=== PATIENT | male | born 1990 | race Caucasian/White ===

== ENCOUNTER → 2017-03-20 | Outpatient (CLI) | payer OTHER ==
[~2017-03-20] MED LIST: BNTHP PO; DICY10CA12 PO; FLUV100T12 PO; ONDA4TAB10 SL
[2017-03-20 16:46] LABS: BASO % 0.3 %; BASO ABS # 0.04 K/uL (0-0.2); COMPLETE YES; EOS % 1.9 %; HEMATOCRIT 46.5 % (42-52); IG% 0.2 %; LYMPH % 38.5 %; LYMPH ABS # 4.78 K/uL (1.2-3.4); MEAN CELL VOLUME 84.4 fL (80-100); MEAN CORPUSCULAR HEMOGLOBIN 29.4 pg (25-34); MEAN CORPUSCULAR HGB CONC 34.8 g/dl (32-36); MEAN PLATELET VOLUME 10.2 fL (7.4-10.4); MONO % 7.6 %; NEUT % 51.5 %; PLATELET COUNT 349 K/uL (130-400); RED BLOOD COUNT 5.51 M/uL (4.7-6.1); WHITE BLOOD COUNT 12.41 K/uL (4.8-10.8)
[2017-03-20 16:54] LABS: ALT/SGPT 107 U/L (12-78); BLOOD UREA NITROGEN 15 mg/dl (7-18); BUN/CREATININE RATIO 15.4 (10-20); CALCIUM 9.4 mg/dl (8.5-10.1); CARBON DIOXIDE 28 mmol/L (21-32); CHLORIDE 104 mmol/L (98-107); CHOLESTEROL 162 mg/dl (0-200); GLUCOSE 98 mg/dl (70-99); POTASSIUM 3.6 mmol/L (3.5-5.1); SODIUM 138 mmol/L (136-145)
[2017-03-20 16:57] LABS: ALKALINE PHOSPHATASE 93 U/L (45-117); AST/SGOT 35 U/L (15-37); HDL CHOLESTEROL 27 mg/dl; LDL CHOLESTEROL CALCULATED 84 mg/dl; TRIGLYCERIDES 256 mg/dl (0-150); VERY LOW DENSITY LIPOPROT CALC 51 mg/dl
== END | disposition home or self-care (01) ==
LOC: C.LABBFT 14:46
PROVIDERS: ATTEND Physician Assistant Medical
DX: Z00.00 Encounter for general adult medical examination without abnormal findings (principal)

== ENCOUNTER 2017-03-22 13:52 | Emergency (ER) | payer OTHER ==
[~2017-03-22] VITALS: Ht 175.3 cm; Wt 107.0 kg
[~2017-03-22 13:52] MED LIST changes: -BNTHP PO; -FLUV100T12 PO; -ONDA4TAB10 SL
[2017-03-22 14:05] VITALS: TEMP 37.6; Ht 175.3 cm; Wt 107.0 kg
[2017-03-22] MEDS ORDERED: FLUV100T12 PO (14:53)
[2017-03-22] MEDS ORDERED: BNTHP PO (14:53)
--- NOTE | 2017-03-22 15:16 | EMERGENCY ROOM VISIT NOTE ---
History Report prepared by [place]: Sonja Chisholm Under the Supervision of: Dr. Dayday Antoine M.D. First contact with patient: 14:47 Chief Complaint: ABDOMINAL PAIN Stated Complaint: V,D, ABD/BACK PAIN, SINCE 03/19/17 Nursing Triage Summary: n/v/d since today having diffuse abd pain with lower back pain History of Present Illness The patient is a 27 year old white male with a past medical history of IBS, depression, and PTSD who presents to the ED with a cc of sharp abdominal pain beginning 3 days ago. The patient states that he saw his doctor after having white diarrhea and was told to come into the ED if his symptoms persisted. He reports that he has had nausea, vomiting, pain below his ribs, and back pain since his visit. He notes that his diarrhea has a yellow phlegm in it. Negative urinary symptoms, chest pain, groin pain, recent travel, well water, trauma. Pt states that is IBS has never been this bad before and his medication usually relieves his symptoms. He reports that he has a family history of colon cancer, colitis, and diverticulitis. He states that his daughter was sick for 1 day but her symptoms are resolved. Pt is not on any blood thinners. Source of History: patient Onset: 3 days ago Position: abdomen Quality: sharp Timing: constant Associated Symptoms: + nausea, + vomiting, + back pain, + diarrhea, No chest pain, No urinary symptoms Note: He notes that his diarrhea has a yellow phlegm in it. Negative groin pain, recent travel, well water, trauma. Review of Systems See HPI for pertinent positives and negatives. A total of ten systems were reviewed and were otherwise negative. Past Medical & Surgical Medical Problems: (1) IBS (irritable bowel syndrome) (2) Rectal hemorrhage Family History No pertinent family history stated. Social History Smoking Status: Never Smoker Marital Status: single Occupation Status: employed Current/Historical Medications Scheduled Dicyclomine HCl (Dicyclomine HCl), 1 CAP PO TID Fluvoxamine Maleate (Luvox), 150 MG PO HS Ondasetron Odt (Zofran Odt), 4 MG SL Q6H Allergies Coded Allergies: No Known Allergies (Unverified , 03/22/17) Physical Exam Vital Signs Date Time Temp Pulse Resp B/P (MAP) Pulse Ox O2 Delivery O2 Flow Rate FiO2 03/22/17 17:04 81 18 122/76 96 Room Air 03/22/17 16:11 83 03/22/17 15:35 88 20 144/94 99 Room Air 03/22/17 14:05 37.6 110 20 138/75 99 Room Air Physical Exam GENERAL: Awake, alert, well-appearing, NAD HENT: Normocephalic, atraumatic. EYES: Normal conjunctiva. Sclera non-icteric. NECK: Supple. No nuchal rigidity. FROM. RESPIRATORY: CTAB, no rhonchi, wheezing, crackles CARDIAC: RRR, no MRG ABDOMEN: Soft, BS+, diffuse abdominal pain but a non-surgical abdomen, non peritonitic. MSK: No chest wall TTP, no LE edema, no CVA TTP, negative obturators, negative psoas NEURO: GCS 15, CN 2-12 intact, moves all 4s on command SKIN: No rash or jaundice noted. Medical Decision & Procedures ER Provider Diagnostic Interpretation: Radiology results as stated below per my review and radiologist interpretation: CHEST ONE VIEW PORTABLE FINDINGS: Lung volumes are normal. No pneumothorax or pleural effusion is present. Pulmonary vascularity is normal. Cardiomediastinal silhouette is normal. No consolidation is identified to suggest pneumonia. IMPRESSION: No acute cardiopulmonary findings. Electronically signed by: Jose J Davila M.D. 03/22/2017 3:56 PM Dictated Date/Time: 03/22/2017 3:[address] OF THE ABDOMEN AND PELVIS WITH CONTRAST FINDINGS: There is probable fatty infiltration of the liver. The adrenal glands and pancreas as well as the spleen are normal. Subcentimeter bilateral renal lesions are too small to characterize. There is no hydronephrosis or hydroureter. The caliber and wall thickness of small and large bowel are normal. The appendix is normal. No peripancreatic or pericholecystic infiltration is present. There is no ascites. There is no lymphadenopathy. Bilateral L5 pars defects are noted without anterolisthesis. IMPRESSION: 1. No acute process within the abdomen or pelvis. Normal appendix. 2. No bowel obstruction. 3. Probable fatty infiltration of the liver. Electronically signed by: Jose J Davila M.D. 03/22/2017 5:16 PM Dictated Date/Time: 03/22/2017 5:11 PM Laboratory Results 03/22/17 14:35 Red Blood Count 5.72, Mean Corpuscular Volume 83.7, Mean Corpuscular Hemoglobin 30.2, Mean Corpuscular Hemoglobin Concent 36.1, Mean Platelet Volume 10.1, Neutrophils (%) (Auto) 51.6, Lymphocytes (%) (Auto) 37.3, Monocytes (%) (Auto) 8.9, Eosinophils (%) (Auto) 1.7, Basophils (%) (Auto) 0.3, Neutrophils # (Auto) 5.91, Lymphocytes # (Auto) 4.27, Monocytes # (Auto) 1.02, Eosinophils # (Auto) 0.20, Basophils # (Auto) 0.03 03/22/17 14:35 Test 03/22/17 14:35 03/22/17 15:25 White Blood Count 11.45 K/uL (4.8-10.8) Red Blood Count 5.72 M/uL (4.7-6.1) Hemoglobin 17.3 g/dL (14.0-18.0) Hematocrit 47.9 % (42-52) Mean Corpuscular Volume 83.7 fL (80-100) Mean Corpuscular Hemoglobin 30.2 pg (25-34) Mean Corpuscular Hemoglobin Concent 36.1 g/dl (32-36) Platelet Count 360 K/uL (130-400) Mean Platelet Volume 10.1 fL (7.4-10.4) Neutrophils (%) (Auto) 51.6 % Lymphocytes (%) (Auto) 37.3 % Monocytes (%) (Auto) 8.9 % Eosinophils (%) (Auto) 1.7 % Basophils (%) (Auto) 0.3 % Neutrophils # (Auto) 5.91 K/uL (1.4-6.5) Lymphocytes # (Auto) 4.27 K/uL (1.2-3.4) Monocytes # (Auto) 1.02 K/uL (0.11-0.59) Eosinophils # (Auto) 0.20 K/uL (0-0.5) Basophils # (Auto) 0.03 K/uL (0-0.2) RDW Standard Deviation 38.8 fL (36.4-46.3) RDW Coefficient of Variation 12.9 % (11.5-14.5) Immature Granulocyte % (Auto) 0.2 % Immature Granulocyte # (Auto) 0.02 K/uL (0.00-0.02) Anion Gap 9.0 mmol/L (3-11) Est Creatinine Clear Calc Drug Dose 142.6 ml/min Estimated GFR () 129.0 Estimated GFR (Non- 111.3 BUN/Creatinine Ratio 12.8 (10-20) Calcium Level 9.1 mg/dl (8.5-10.1) Phosphorus Level 3.6 mg/dl (2.5-4.9) Magnesium Level 2.1 mg/dl (1.8-2.4) Total Bilirubin 0.6 mg/dl (0.2-1) Direct Bilirubin 0.1 mg/dl (0-0.2) Aspartate Amino Transf (AST/SGOT) 29 U/L (15-37) Alanine Aminotransferase (ALT/SGPT) 87 U/L (12-78) Alkaline Phosphatase 99 U/L (45-117) Total Protein 8.6 gm/dl (6.4-8.2) Albumin 4.4 gm/dl (3.4-5.0) Lipase 94 U/L (73-393) Urine Color DK YELLOW Urine Appearance CLEAR (CLEAR) Urine pH 5.0 (4.5-7.5) Urine Specific [place] 1.028 (1.000-1.030) Urine Protein TRACE (NEG) Urine Glucose (UA) NEG (NEG) Urine Ketones NEG (NEG) Urine Occult Blood NEG (NEG) Urine Nitrite NEG (NEG) Urine Bilirubin NEG (NEG) Urine Urobilinogen NEG (NEG) Urine Leukocyte Esterase NEG (NEG) Urine WBC (Auto) 1-5 /hpf (0-5) Urine RBC (Auto) 0-4 /hpf (0-4) Urine Hyaline Casts (Auto) 10-30 /lpf (0-5) Urine Epithelial Cells (Auto) 20-30 /lpf (0-5) Urine Bacteria (Auto) NEG (NEG) Laboratory results reviewed by me Medications Administered Medications (Trade) Dose Ordered Sig/Kishore Route Start Time Stop Time Status Last Admin Dose Admin Sodium Chloride 1,000 ml @ 999 mls/hr Q1H1M STAT IV 03/22/17 15:20 03/22/17 16:20 DC 03/22/17 15:31 999 MLS/HR Ondansetron HCl (Zofran Inj) 4 mg NOW STAT IV 10/15/17 15:20 03/22/17 15:21 DC 03/22/17 15:32 4 MG ED Course 1447: The patient was evaluated in room C1. A complete history and physical exam was performed. 1520: Morphine Sulfate 4mg IV, Zofran Inj 4mg IV, Sodium Chloride 1000 ml @ 999 mls/hr IV. 1732: I reevaluated and updated the patient. 1743: I reevaluated the patient. Discussed results and discharge instructions: He verbalized understanding and agreement. The patient is ready for discharge. Medical Decision The patient is a 27 year old white male with a past medical history of IBS, depression, and PTSD who presents to the ED with a cc of sharp abdominal pain beginning 3 days ago. Differential diagnosis: Etiologies such as appendicitis, diverticulitis, PUD, biliary pathology, UTI, pancreatitis, obstruction, mesenteric ischemia, aortic pathology, infections, inflammatory bowel disease, renal colic, as well as others were entertained. Patient was seen and evaluated at the bedside. Patient is a history of IBS. Patient's family history of possible colitis and sure if it's inflammatory bowel disease such as ulcerative colitis or Crohn's. Patient has been complaining of some nausea vomiting as well as diarrhea. Patient denies any recent trauma. Patient generally takes dicyclomine but currently without relief. Patient did have blood work, UA, supportive care along with a CT of the abdomen pelvis completed. Patient's UA without infection. CT the abdomen pelvis did not show any bowel obstruction or inflammatory changes of the bowel. Patient's LFTs and lipase within normal limits with exception of AST that was trace the elevated.. Patient did have mild hypokalemia told to supplement home. Patient white count of 11,000. Patient was told of his the findings. Patient was told to follow up with his primary care and call tomorrow and thus get a referral for gastroenterology as the patient does have a family history of colon cancer and does have a history of IBS. Patient tolerated by mouth. Patient was told to slowly advance his diet as tolerated. Patient was given strict follow-up, discharge, and return precautions. Patient agreed with plan of care and patient was safely discharged home. Medication Reconcilliation Current Medication List: was personally reviewed by me Blood Pressure Screening Patient's blood pressure: Elevated blood pressure Blood pressure disposition: Elevated BP felt to be situational Impression Primary Impression: Viral gastroenteritis Additional Impressions: Nausea & vomiting Diarrhea Hypokalemia Scribe Attestation The scribe's documentation has been prepared under my direction and personally reviewed by me in its entirety. I confirm that the note above accurately reflects all work, treatment, procedures, and medical decision making performed by me. Departure Information Dispostion Home / Self-Care Prescriptions Ondasetron Odt (ZOFRAN ODT) 4 Mg Tab 4 MG SL Q6H for Nausea, #10 TAB Prov: Dayday Antoine M.D. 03/22/17 Referrals No Doctor, Assigned (PCP) Veronica Colbert, DO Patient Instructions ED Gastroenteritis Viral, My [facility] Additional Instructions Please return to the emergency department if you have worsening or recurrent symptoms not amenable to at-home treatment. Please call for a follow-up appointment with her primary care physician. Please take your medications as prescribed. If you have other concerns and/or complaints please feel free to also call your primary care physician's office or return the ED for further evaluation, management, and treatment. You were found to have an elevated blood pressure today (>120 sytolic or >90 diastolic). Per medicare guidelines, you need to follow up with this blood pressure screening with your Primary Care Physician (PCP). For a new PCP call [phone]. You received narcotic or benzodiazepene medication while in the emergency room today. This is an addictive medication that may cause drowziness as well as constipation. Do not drive, operate heavy machinery, or drink alcohol under the influence of this medication. You may take tylenol 1000mg every 6 hours as needed for pain. Continue to try you dicyclomine. You may also try loperamide to help w/ diarrhea but only take 1 time each day for next two days. Call PCP for a follow up appointment and help arrange follow up with a a operator. You have been examined and treated today on an emergency basis only. This is not a substitute for, or an effort to provide, complete comprehensive medical care. It is impossible to recognize and treat all injuries or illnesses in a single emergency department visit. It is therefore important that you follow up closely with [facility]. Call as soon as possible for an appointment. Thank you for your time and consideration. I look forward to speaking with you again soon. Please don't hesitate to call us if you have any questions. Problem Qualifiers Additional Impressions: Nausea & vomiting Vomiting type: unspecified Vomiting Intractability: non-intractable Qualified Codes: R11.2 - Nausea with vomiting, unspecified Diarrhea Diarrhea type: unspecified type Qualified Codes: R19.7 - Diarrhea, unspecified
[2017-03-22] MEDS ORDERED: ONDANSETRON INJ 2 MG/ML 2 ML VIAL IV STA (15:20)
[2017-03-22] MEDS ORDERED: SODIUM CHLORIDE 0.9% 1000ML 1,000 ML IV STA (15:20)
[2017-03-22] MEDS ORDERED: MoRPHine SULFATE 4 MG/ML 1 ML CARP\\VIAL IV STA (15:20)
[2017-03-22 15:30] LABS: BASO % 0.3 %; BASO ABS # 0.03 K/uL (0-0.2); COMPLETE YES; EOS % 1.7 %; HEMATOCRIT 47.9 % (42-52); IG% 0.2 %; LYMPH % 37.3 %; LYMPH ABS # 4.27 K/uL (1.2-3.4); MEAN CELL VOLUME 83.7 fL (80-100); MEAN CORPUSCULAR HEMOGLOBIN 30.2 pg (25-34); MEAN CORPUSCULAR HGB CONC 36.1 g/dl (32-36); MEAN PLATELET VOLUME 10.1 fL (7.4-10.4); MONO % 8.9 %; NEUT % 51.6 %; PLATELET COUNT 360 K/uL (130-400); RED BLOOD COUNT 5.72 M/uL (4.7-6.1); WHITE BLOOD COUNT 11.45 K/uL (4.8-10.8)
[2017-03-22] MEDS ORDERED: OPTIRAY 320 IV PRN (15:30)
[2017-03-22 15:37] LABS: BUN/CREATININE RATIO 12.8 (10-20); CALCIUM 9.1 mg/dl (8.5-10.1); CREATININE 0.93 mg/dl (0.60-1.40); MAGNESIUM 2.1 mg/dl (1.8-2.4); POTASSIUM 3.4 mmol/L (3.5-5.1)
[2017-03-22 15:41] LABS: PHOSPHORUS 3.6 mg/dl (2.5-4.9)
[2017-03-22 15:45] LABS: MANUAL MICROSCOPIC REQUIRED? NO; REVIEW REQ? NO; URINE APPEARANCE CLEAR (CLEAR); URINE BILIRUBIN NEG (NEG); URINE COLOR DK YELLOW; URINE EPITHELIAL CELL AUTO 20-30 /lpf (0-5); URINE NITRITE NEG (NEG); URINE SPECIFIC GRAVITY 1.028 (1.000-1.030); UROBILINOGEN NEG (NEG); ZZUR CULT IF INDIC CLEAN CATCH NO
--- NOTE | 2017-03-22 15:57 | DIAGNOSTIC IMAGING REPORT ---
CHEST ONE VIEW PORTABLE CLINICAL HISTORY: Abdominal pain. COMPARISON STUDY: No previous studies for comparison. FINDINGS: Lung volumes are normal. No pneumothorax or pleural effusion is present. Pulmonary vascularity is normal. Cardiomediastinal silhouette is normal. No consolidation is identified to suggest pneumonia. IMPRESSION: No acute cardiopulmonary findings. Electronically signed by: Jose J Davila M.D. 03/22/2017 3:56 PM Dictated Date/Time: 03/22/2017 3:55 PM
--- NOTE | 2017-03-22 17:17 | DIAGNOSTIC IMAGING REPORT ---
CT OF THE ABDOMEN AND PELVIS WITH CONTRAST CLINICAL HISTORY: Abdominal pain, nausea and vomiting. COMPARISON STUDY: CT of the abdomen and pelvis December 03, 2012 and right upper quadrant ultrasound December 07, 2012. TECHNIQUE: Following IV administration of 93 mL of Optiray-320, axial images of the abdomen and pelvis were obtained from the lung bases to the proximal femurs. Images were reviewed in the axial, sagittal, and coronal planes. IV contrast was administered without complication. A dose lowering technique was utilized adhering to the principles of ALARA. CT DOSE: 1101.13 mGy.cm FINDINGS: There is probable fatty infiltration of the liver. The adrenal glands and pancreas as well as the spleen are normal. Subcentimeter bilateral renal lesions are too small to characterize. There is no hydronephrosis or hydroureter. The caliber and wall thickness of small and large bowel are normal. The appendix is normal. No peripancreatic or pericholecystic infiltration is present. There is no ascites. There is no lymphadenopathy. Bilateral L5 pars defects are noted without anterolisthesis. IMPRESSION: 1. No acute process within the abdomen or pelvis. Normal appendix. 2. No bowel obstruction. 3. Probable fatty infiltration of the liver. Electronically signed by: Jose J Davila M.D. 03/22/2017 5:16 PM Dictated Date/Time: 03/22/2017 5:11 PM
[2017-03-22] MEDS ORDERED: ONDA4TAB10 SL (17:36)
[2017-03-22 17:53] VITALS: BP 122/71; PULSE 83; O2SAT 98
== END 2017-03-22 17:55 | disposition home or self-care (01) ==
LOC: C.EDB 13:54 → C.EDC 17:55
DX: A08.4 Viral intestinal infection, unspecified (principal); E87.6 Hypokalemia; K58.9 Irritable bowel syndrome, unspecified; Z87.19 Personal history of other diseases of the digestive system; Z79.899 Other long term (current) drug therapy

== ENCOUNTER → 2017-03-25 | Outpatient (CLI) | payer OTHER ==
[~2017-03-25] MED LIST changes: +BNTHP PO; -DICY10CA12 PO; +FLUV100T12 PO; +ONDA4TAB10 SL
[2017-03-25 17:27] LABS: HEMATOCRIT 41.2 % (42-52); MEAN CELL VOLUME 84.8 fL (80-100); MEAN CORPUSCULAR HEMOGLOBIN 29.4 pg (25-34); MEAN CORPUSCULAR HGB CONC 34.7 g/dl (32-36); MEAN PLATELET VOLUME 10.3 fL (7.4-10.4); PLATELET COUNT 313 K/uL (130-400); RED BLOOD COUNT 4.86 M/uL (4.7-6.1); WHITE BLOOD COUNT 9.65 K/uL (4.8-10.8)
[2017-03-25 17:45] LABS: ALKALINE PHOSPHATASE 92 U/L (45-117); ALT/SGPT 57 U/L (12-78); AST/SGOT 28 U/L (15-37)
[2017-03-25 18:18] LABS: COMPLETE YES; EOSINOPHIL % 3.5 %; LYMPHOCYTE % 30.1 %; MYELOCYTE % 0.9 %; NEUTROPHILS % 32.7 %; VARIANT LYM ABS # 2.48 K/uL; VARIANT LYMPHOCYTE % 25.7 %
== END | disposition home or self-care (01) ==
LOC: C.LABBFT 14:47
PROVIDERS: ATTEND Nurse Practitioner
DX: R10.9 Unspecified abdominal pain (principal)

== ENCOUNTER → 2017-03-30 | Outpatient (CLI) | payer OTHER ==
[~2017-03-30] MED LIST changes: +OPTIRAY 320 IV PRN
--- NOTE | 2017-03-30 08:37 | DIAGNOSTIC IMAGING REPORT ---
ABDOMEN AND PELVIS CT WITH IV AND ORAL CONTRAST CT DOSE: 1153.91 mGy.cm HISTORY: Generalized abdominal pain. TECHNIQUE: Multiaxial CT images of the abdomen and pelvis were performed following the use of intravenous and oral contrast. A dose lowering technique was utilized adhering to the principles of ALARA. COMPARISON STUDY: Abdomen and pelvis CT 03/22/2017. FINDINGS: The lung bases are clear. The liver, spleen, gallbladder, pancreas, and adrenal glands are within normal limits. No bowel wall thickening or obstruction. The pelvic organs are unremarkable. No suspicious lytic or blastic osseous lesions. Normal appendix. Bilateral L5 spondylolysis. Stable hypodense lesions within the kidneys. No hydronephrosis. IMPRESSION: No significant abnormality identified within the abdomen or pelvis. No change from the prior study. Electronically signed by: Low Maciel M.D. 03/30/2017 8:36 AM Dictated Date/Time: 03/30/2017 8:30 AM
== END | disposition home or self-care (01) ==
LOC: C.CTS 07:58
PROVIDERS: ATTEND Physician Assistant Medical
DX: R19.7 Diarrhea, unspecified (principal)